=== PATIENT | male | born 2005 | race African-American/Black ===

== ENCOUNTER 2025-03-22 09:29 | Emergency (ER) | payer OTHER ==
[~2025-03-22] VITALS: Ht 188 cm; Wt 81.8 kg
[2025-03-22 09:47] LABS: BASO # 0.0 10^3/uL (0.0-0.2); BASO % 0.7 % (0.0-1.0); EOS # 0.5 10^3/uL (0.0-0.5); EOS % 10.9 % (0.0-3.0); LYMPH # 1.7 10^3/uL (1.5-5.0); LYMPH % 36.3 % (24.0-44.0); MONO # 0.4 10^3/uL (0.0-0.8); MONO % 7.9 % (2.0-8.0); NEUTROPHILS # 2.0 10^3/uL (1.5-8.5); NEUTROPHILS % 44.2 % (36.0-66.0); PLATELET COUNT, AUTOMATED 216 10^3/uL (150-450)
[2025-03-22 10:16] LABS: CK-MB VALUE MASS 1.5 NG/ML (<3.6)
[2025-03-22 10:18] LABS: ALT/SGPT 11 U/L (7.0-40); AST/SGOT 27 U/L (<34); CALCIUM LEVEL 8.7 MG/DL (8.5-10.1); CARBON DIOXIDE LEVEL 27 MMOL/L (20-31); CHLORIDE LEVEL 108 MMOL/L (98-107); CREATININE FOR GFR 1.06 MG/DL (0.70-1.30); GLOMERULAR FILTRATION RATE > 90.0 (>60); POTASSIUM SERUM 4.1 MMOL/L (3.5-5.1); SODIUM LEVEL 140 MMOL/L (136-145)
[2025-03-22 11:21] LABS: CK-MB VALUE MASS 1.0 NG/ML (<3.6)
[2025-03-22 11:25] LABS: CPK CREATINE PHOSPHOKINASE 251 U/L (46-171); MB/CK RELATIVE INDEX 0.59 (< OR =4)
[2025-03-22 11:25] LABS: CPK CREATINE PHOSPHOKINASE 238.0 U/L (46-171); MB/CK RELATIVE INDEX 0.42 (< OR =4)
[2025-03-22 11:32] VITALS: TEMP 97.8
[2025-03-22 12:00] VITALS: BP 114/64; O2SAT 100
== END 2025-03-22 12:22 | disposition home or self-care (01) ==
LOC: EDBD 09:29 → M ED 09:29
DX: R07.9 Chest pain, unspecified (principal)